=== PATIENT | male | born 1975 | race Asian ===

== ENCOUNTER 2018-01-02 20:27 | Emergency (ER) | payer OTHER ==
[~2018-01-02] VITALS: Ht 172.7 cm; Wt 77.1 kg
[2018-01-02 20:36] VITALS: BP 155/111
== END 2018-01-02 21:58 | disposition home or self-care (01) ==
LOC: ER 20:39
DX: S61.216A Laceration without foreign body of right little finger without damage to nail, initial encounter (principal); F17.200 Nicotine dependence, unspecified, uncomplicated; Z60.2 Problems related to living alone; W26.8XXA Contact with other sharp object(s), not elsewhere classified, initial encounter; Y93.89 Activity, other specified; Y92.89 Other specified places as the place of occurrence of the external cause; Y99.0 Civilian activity done for income or pay
CPT/HCPCS: A4606; Z7610

== ENCOUNTER 2021-03-17 13:00 | Emergency (ER) | payer OTHER ==
--- NOTE | 2021-03-17 13:09 | NUR ---
CALLED TO TRIAGE,NO ANSWER
--- NOTE | 2021-03-17 13:22 | NUR ---
CALLED TO TRIAGE,NO ANSWER
--- NOTE | 2021-03-17 13:35 | NUR ---
CALLED TO TRIAGE,NO ANSWER
== END 2021-03-17 13:36 | disposition left against medical advice (07) ==
LOC: ER 13:02
DX: Z53.21 Procedure and treatment not carried out due to patient leaving prior to being seen by health care provider (principal)

== ENCOUNTER 2022-05-07 17:03 | Emergency (ER) | payer OTHER ==
[~2022-05-07] VITALS: Ht 172.7 cm; Wt 77.1 kg
[2022-05-07 17:13] VITALS: BP 168/108
[2022-05-07] MEDS ORDERED: SULF1TAB48 PO (17:43)
--- NOTE | 2022-05-07 17:57 | NUR ---
Patient discharged to home in stable condition. Written and verbal after care instructions given. Patient verbalizes understanding of instruction.
== END 2022-05-07 17:57 | disposition home or self-care (01) ==
LOC: ER 17:07
DX: L03.114 Cellulitis of left upper limb (principal); F17.200 Nicotine dependence, unspecified, uncomplicated; Z60.2 Problems related to living alone